=== PATIENT | female | born 1945 | race Caucasian/White ===

== ENCOUNTER 2018-09-25 06:42 | Emergency (ER) | payer MEDICARE ==
--- NOTE | 2018-09-25 07:22 | ED ---
HPI Chest Pain - HPI Summary HPI Summary: Pt is a 72 y/o F with hx of hypercholesterolemia, anxiety presenting with left sided lateral chest wall pain x 3 days. She also notes shortness of breath, worse with deep breaths and with movement. She states her current sx are similar to previous diagnosis of pleurisy. Her pain began at the sternum which she describes as a "tightness" which improved with a heating pad and tylenol and ibuprofen. She has mild nausea but denies vomiting, diarrhea, abdominal pain. Denies palpitations, cough, headache, dizziness, ankle swelling, and calf pain. Denies hx of COPD, asthma, cardiac disease, hypertension. She is a former smoker. Sxs began 3 days ago but has been slowly improving. She believes this could be a pulled muscle as sxs began as she was gardening all day and developed immediately following. Denies calf pain, recent travel. - History of Current Complaint Chief Complaint: EDChestPainROMI Time Seen by Provider: 09/25/18 06:49 Hx Obtained From: Patient Onset/Duration: Started Days Ago - Started Sunday while gardening Timing: Constant Initial Severity: Mild Current Severity: Mild Pain Intensity: 2 Pain Scale Used: 0-10 Numeric Chest Pain Location: Left Lateral Chest Pain Radiates: Yes Chest Pain Radiates To:: Shoulder Aggravating Factor(s): Movement, Deep Breaths Alleviating Factor(s): OTC Meds Associated Signs and Symptoms: Positive: Shortness of Breath, Nausea. Negative : Chest Pain, Headaches, Dizziness, Swelling, Fever, Palpitations, Cough, Abdominal Pain, Calf Pain/Swelling, Vomiting Related History: Similar Episode/Dx as: - previous pleurisy - Allergy/Home Medications Allergies/Adverse Reactions: Allergies Allergy/AdvReac Type Severity Reaction Status Date / Time MS Neomycin [Neomycin] Allergy Nausea And Verified 11/24/15 12:01 Vomiting PMH/Surg Hx/FS Hx/Imm Hx Endocrine/Hematology History: Reports: Hx Diabetes - Pre-diabetes Cardiovascular History: Denies: Hx Atrial Fibrillation, Hx Congestive Heart Failure, Hx Deep Vein Thrombosis, Hx Embolism, Hx Hypertension, Hx Myocardial Infarction Respiratory History: Denies: Hx Asthma, Hx Chronic Obstructive Pulmonary Disease (COPD) GI History: Reports: Hx Gastroesophageal Reflux Disease - ON MEDICATION FOR, s/ p TIA 2000 History: Reports: Other Problems/Disorders - HX OF PROTEIN IN URINE IN THE PAST Musculoskeletal History: Reports: Hx Osteoporosis Sensory History: Reports: Hx Cataracts - BILATERAL, Hx Contacts or Glasses - GLASSES Denies: Hx Hearing Aid Opthamlomology History: Reports: Hx Cataracts - BILATERAL, Hx Contacts or Glasses - GLASSES Neurological History: Reports: Hx Migraine - OCCASIONAL TYLENOL, Hx Transient Ischemic Attacks (TIA) - 2000 Psychiatric History: Reports: Hx Anxiety - Cancer History Hx Chemotherapy: No Hx Radiation Therapy: No - Surgical History Surgery Procedure, Year, and Place: TUBAL LIGATION, bilateral cataracts Hx Anesthesia Reactions: No Infectious Disease History: No Infectious Disease History: Denies: Traveled Outside the [place] in Last 30 Days - Social History Alcohol Use: Occasionally Substance Use Type: Reports: None Smoking Status (MU): Former Smoker Amount Used/How Often: 2 PPD X 40 YEARS Have You Smoked in the Last Year: No Review of Systems Negative: Fever, Chills Positive: Chest Pain - Lateral left-sided wall pain. Negative: Palpitations Positive: Shortness Of Breath - worse with deep breaths and movement. Negative : Cough Positive: Nausea. Negative: Abdominal Pain, Vomiting, Diarrhea Negative: Headache, Weakness All Other Systems Reviewed And Are Negative: Yes Physical Exam Triage Information Reviewed: Yes Vital Signs On Initial Exam: Initial Vitals Temp Pulse Resp BP Pulse Ox 97.7 F 119 18 131/81 95 09/25/18 06:47 09/25/18 06:47 09/25/18 06:47 09/25/18 06:47 09/25/18 06:47 Vital Signs Reviewed: Yes Appearance: Positive: Well-Appearing, No Pain Distress Skin: Positive: Warm, Skin Color Reflects Adequate Perfusion, Dry Head/Face: Positive: Normal Head/Face Inspection Eyes: Positive: Normal ENT: Positive: Normal ENT inspection Respiratory/Lung Sounds: Positive: Clear to Auscultation. Negative: Rales, Rhonchi, Wheezes Cardiovascular: Positive: Tachycardia, S1, S2 Abdomen Description: Positive: Nontender, Soft. Negative: Distended Bowel Sounds: Positive: Present Musculoskeletal: Positive: Normal, Strength/ROM Intact - upper extremities b/l Neurological: Positive: Normal Psychiatric: Positive: Normal Diagnostics - Vital Signs Vital Signs Temp Pulse Resp BP Pulse Ox 09/25/18 06:47 97.7 F 119 18 131/81 95 - Laboratory Result Diagrams: 09/25/18 07:21 09/25/18 07:21 Lab Statement: Any lab studies that have been ordered have been reviewed, and results considered in the medical decision making process. - Radiology CXR Radiology Interpretation Completed By: Radiologist Summary of Radiographic Findings: Small right pleural effusion. - EKG 0644 Summary of EKG Findings: Sinus tachycardia, right axis deviation, no ST changes Chest Pain Course/Dx - Course Course Of Treatment: Ms. Campbell, the patient's evaluated for left-sided chest pain. The chest pain she is pointing to his directly over to the left lateral side under the rib cage radiating up into the left axilla left shoulder , and left scapular area. Symptoms began after a day of gardening. She does state however this feels similar to when she had pleurisy in the past. Symptoms are not worse with lying flat and better with sitting upright. She endorses mild shortness of breath. Denies any feeling of heart racing. Denies any UTI symptoms, abdominal pain, constipation or diarrhea. Denies any visual changes, stiff neck or headache. Symptoms have been improving over the past 3 days with ibuprofen, Tylenol and heat packs. X-ray obtained which shows small amount of left pleural effusion. EKG shows sinus tachycardia with no other acute findings. Labs obtained which are WNL except for a slightly elevated leukocytosis of 12,000. As patient is tachycardic at 117 and endorses some SOB , attempted to rule out for PE. D-dimer 246. CTA follow-up shows left lung nodule, with no signs of pulmonary embolism. Troponin 2 equals 0.00. She will follow-up in 6 months with her PCP for a repeat CT scan. She understands return precautions. She offers no complaints at this time. She declines any pain medications while in the ED. - Chest Pain Differential Diagnosis/HQI/PQRI: Acute VT, ACS, Angina, Chest Wall, Pulmonary Embolism - Diagnoses Provider Diagnoses: Chest wall pain Discharge - Sign-Out/Discharge Documenting (check all that apply): Patient Departure Patient Received Moderate/Deep Sedation with Procedure: No - Discharge Plan Condition: Stable Disposition: HOME Patient Education Materials: Musculoskeletal Pain (ED), Pulmonary Nodules (ED) Referrals: Addis Carlson MD [Primary Care Provider] - Additional Instructions: Please follow up with your PCP No evidence of blood clot or cardiac reasons for your chest pain This appears to be musculoskeletal as symptoms have been improving somewhat with heat and ibuprofen Continue heat and ibuprofen Return for worsening symptoms - Billing Disposition and Condition Condition: STABLE Disposition: Home
[2018-09-25 07:31] LABS: ABS Lymphocytes 1.1 10^3/ul (1.0-4.8); ABS Monocytes 1.3 10^3/ul (0-0.8); ABS Neutrophils 9.6 10^3/ul (1.5-7.7); Eosinophil % 0.4 %; Hematocrit 45 % (35-47); Lymphocyte % 8.8 %; Mean Corpuscular HGB Conc 34 g/dL (31-36); Mean Corpuscular Hemoglobin 32 pg (27-31); Mean Corpuscular Volume 94 fL (80-97); Mean Platelet Volume 8.4 fL (7.4-10.4); Platelet Count 218 10^3/uL (150-450); Red Blood Count 4.77 10^6 /uL (3.70-4.87); Red Cell Distribution Width 13 % (10.5-15); White Blood Count 12.1 10^3/uL (3.5-10.8)
[2018-09-25 07:54] LABS: Albumin 4.1 g/dL (3.2-5.2); Albumin/Globulin Ratio 1.3 (1-3); BUN/Creatinine Ratio 15.3 (8-20); Calcium 9.5 mg/dL (8.6-10.3); EGFR African American 79.5 (>60); EGFR Non-African American 65.7 (>60); Globulin 3.2 g/dL (2-4); Total Bilirubin 0.7 mg/dL (0.2-1.0); Total Protein 7.3 g/dL (6.4-8.9)
[2018-09-25] MEDS ORDERED: Iodixanol* (CONTRAST) 320 MG/ML 100 ML SDV IV ONE (09:09)
[2018-09-25 10:37] VITALS: BP 132/76
== END 2018-09-25 10:36 | disposition home or self-care (01) ==
LOC: ED 06:42
DX: R07.89 Other chest pain (principal); R06.02 Shortness of breath; R11.0 Nausea; J44.9 Chronic obstructive pulmonary disease, unspecified; J90 Pleural effusion, not elsewhere classified; R91.1 Solitary pulmonary nodule; R00.0 Tachycardia, unspecified; R73.03 Prediabetes; K21.9 Gastro-esophageal reflux disease without esophagitis; Z88.1 Allergy status to other antibiotic agents; Z87.891 Personal history of nicotine dependence
CPT/HCPCS: 36415; 71046; 71275; 80053; 82550; 83605; 83735; 84484; 85025; 85379; 93005; 99282; Q9967